=== PATIENT | female | born 2000 | race Caucasian/White ===

== ENCOUNTER 2022-03-06 11:00 | Outpatient (RCR) | payer OTHER, SELFPAY ==
--- NOTE | 2022-02-14 08:06 | HP.OTEVAL_ITS ---
Patient's Visit Information MEGHAN DUNHAM is a 21 year old F, referred to Occupational Therapy by CLEMENTINA RAMIREZ, with a diagnosis of wrist pain right sprain strain.. Date of Evaluation: 02/13/22 Occupational Therapist: Coral Bolden, OTWilliams/Radha, CHT - Subjective This 21 year old female was seen for OT eval with dx of right wrist sprain/strain- this happened 2021 while lifting at work-. pt states she did place herself in her wrist. pt states her WC RN told her not to use it and gave her to use ronda wrap- pt is on 20# lift restriction. pt works fulltime and does workout at a gym. she states she does not go past her 20# restriction and can do most exercise as long as her wrist is straight. Pt states dull pain most of the time and limits her IND with work tasks. - Pain right hand/wrist 1 Pain Intensity Range: 3 - ROM Forearm: right sup/pron WNL painful left WNL Wrist: right 65/45 left 75/75 - Strength Level Vial Inspector: right 40# left 45# Lateral Pinch: right 8# left 8# Tripod Pinch: right 10# left 8# - Sensation Sensation Comments: denies - Special Tests Phalen's (Carpal Tunnel): negative WHAT Test: negative Anna Scaphoid Shift: negative - Quick DASH-Disab of Arm,Shoulder& Hand Quick DASH Score: 26.6650 - Goals Goal:: pt will demo a increase in right classification case manager strength to 50# or greater to return pt to PLOF by d/c Goal:: pt will demo right wrist ROM equal to unaffected wrist by d/c to return pt to PLOF by d/c Goal:: pt will report no pain greater than 2/10 with use of right UE with ADLs and IADLs by d/c Goal:: pt will demo understanding of wrist and UB ergonomics to prevent further injury and protect pts UB while working - Rehabilitation General Assessment: this 21 year old female was seen with dx of right wrist sprain/strain. pt states pain was very intense initially and now a dull ache with tasks- pt does notice it following her work day more- pt is demo with with a decrease in ROM of right wrist flex/ext and pain with supination/pronation more in muscle belly of forearm vs lig.of carpal bones or TFCC regions- pt would benefit from skilled OT services 2x week for 6 weeks to regain pts ROM and return pt to PLOF with right UE for work and ADLs tasks. Pt demo understanding and agrees to POC. Rehabilitation Potential: Good - Anticipated Interventions A/AAROM/PROM, Strengthening, Triggerpoint Release, Modalities, Ergonomic Education, ADL Training, Education re assistive Equipment, Caregiver Training - Visit Plan Frequency: 2x /Week Duration: 6 Weeks General Plan: US to right forearm muscle at 100% 3.3mhz 1.2 for 10 min-. forearm stretch. isometrics. and transition to simulated work tasks TEXT: Thank you for the opportunity to evaluate your patient. For Medicare and Medicare HMO plans, please review the plan of care and approve it. It will need to be FAXED BACK to us at [phone] for Medicare purposes. Please let me know if there are questions or concerns regarding this plan of care. Physician Signature: Date:
--- NOTE | 2022-03-07 16:03 | HP.OTDCSUM_ITS ---
It has been my pleasure to treat MEGHAN DUNHAM under orders from CLEMENTINA RAMIREZ, for the diagnosis of wrist pain right sprain strain. for a total of 7 visit(s). Please see the following information for a summary of their discharge status. % Improvement: 90 Objective/Function: Strength. Application Support Manager: right 60# left 50#. Lateral Pinch: right 13# left 16#. Tripod Pinch: right 13# left 10#. Forearm: right sup/pron WNL painful left WNL. Wrist: right 75/70 left 75/75. at this time pt has met OT goals and is D/C at this time. Patient Goals: Regain Mobility, Decrease Pain, Use Hand/Wrist/Arm Normally Again Goal:: pt will demo a increase in right design analyst strength to 50# or greater to return pt to PLOF by d/c Goal:: pt will demo right wrist ROM equal to unaffected wrist by d/c to return pt to PLOF by d/c Goal:: pt will report no pain greater than 2/10 with use of right UE with ADLs and IADLs by d/c Goal:: pt will demo understanding of wrist and UB ergonomics to prevent further injury and protect pts UB while working Plan: cont with trigger point release- Discharge Comments: Pt was seen 7/12 OT sessions- pt progressed well and has been performing her UB exercises without difficulty- pt denies issues with ADLs and IADls- pt has met OT goals and is d/c at this time. If there are questions or concerns regarding this patient's occupational therapy, please fell free to call me at [phone]. Thank you for the referral of this patient. Sincerely, Coral Bolden, OTR/L, CHT
== END 2022-03-06 19:00 | disposition home or self-care (01) ==
LOC: OT 11:00
PROVIDERS: PCP Family Medicine
DX: S66.911A Strain of unspecified muscle, fascia and tendon at wrist and hand level, right hand, initial encounter (principal)
CPT/HCPCS: 97035; 97110; 97140; 97166